=== PATIENT | male | born 1970 | race African-American/Black ===

== ENCOUNTER 2017-10-04 14:45 | Inpatient (IN) | payer OTHER ==
[2017-10-04 15:32] VITALS: BMI 32.3
--- NOTE | 2017-10-04 18:11 | HP ---
CIWA Score - CIWA Score Nausea/Vomitin-Mild Nausea/No Vomiting Muscle Tremors: 4-Moderate,w/Arms Extend Anxiety: 4-Mod. Anxious/Guarded Agitation: 4-Moderately Restless Paroxysmal Sweats: 1-Minimal Palms Moist Orientation: 1-Uncertain about Date Tacttile Disturbances: 0-None Auditory Disturbances: 0-None Visual Disturbances: 0-None Headache: 0-None Present CIWA-Ar Total Score: 15 Admission ROS BHS - HPI Chief Complaint: withdrawal sx Allergies/Adverse Reactions: Allergies Allergy/AdvReac Type Severity Reaction Status Date / Time No Known Allergies Allergy Verified 10/04/17 17:48 History of Present Illness: 47 years old male with long history of alcohol nicotine dependence has hypertension gerd asthma and bipolar ii is admitted to detox Exam Limitations: No Limitations - Ebola screening Have you traveled outside of the country in the last 21 days: No Have you had contact with anyone from an Ebola affected area: No Have you been sick,other than usual withdrawal symptoms: No Do you have a fever: No - Review of Systems Constitutional: Changes in sleep, Weight Stable EENT: reports: No Symptoms Reported Respiratory: reports: No Symptoms reported Cardiac: reports: No Symptoms Reported GI: reports: Nausea, Poor Fluid Intake, Indigestion, Abdominal cramping : reports: No Symptoms Reported Musculoskeletal: reports: No Symptoms Reported Integumentary: reports: No Symptoms Reported Neuro: reports: Tremors Endocrine: reports: No Symptoms Reported Hematology: reports: No Symptoms Reported Psychiatric: reports: Judgement Intact, Anxious, Depressed Other Systems: Reviewed and Negative Patient History - Patient Medical History Hx Anemia: No Hx Asthma: Yes Hx Chronic Obstructive Pulmonary Disease (COPD): No Hx Cancer: No Hx Cardiac Disorders: No Hx Congestive Heart Failure: No Hx Hypertension: Yes Hx Hypercholesterolemia: No Hx Pacemaker: No HX Cerebrovascular Accident: No Hx Seizures: No Hx Dementia: No Hx Diabetes: No Hx Gastrointestinal Disorders: Yes Hx Liver Disease: No Hx Genitourinary Disorders: No Hx Sexually Transmitted Disorders: No Hx Renal Disease (ESRD): No Hx Thyroid Disease: No Hx Human Immunodeficiency Virus (HIV): No (o9 last) Hx Hepatitis C: No Hx Depression: No Hx Suicide Attempt: No Hx Bipolar Disorder: Yes (non compliance) Hx Schizophrenia: No - Patient Surgical History Past Surgical History: Yes Hx Neurologic Surgery: No Hx Cataract Extraction: No Hx Cardiac Surgery: No Hx Lung Surgery: No Hx Breast Surgery: No Hx Breast Biopsy: No Hx Abdominal Surgery: No Hx Appendectomy: No Hx Cholecystectomy: No Hx Genitourinary Surgery: No Hx Orthopedic Surgery: Yes (RT.PINKY TOE) Other Surgical History: laceraion of right forearm in 1990 repair of tendon Anesthesia Reaction: No - PPD History Previous Implant?: Yes Documented Results: Negative w/o proof Implanted On Prior [facility] Admission?: Yes Date: 01/14/15 PPD to be Administered?: Yes - Smoking Cessation Smoking history: Current every day smoker Have you smoked in the past 12 months: Yes Aproximately how many cigarettes per day: 10 Cigars Per Day: 0 Hx Chewing Tobacco Use: No Initiated information on smoking cessation: Yes 'Breaking Loose' booklet given: 10/04/17 - Substance & Tx. History Hx Alcohol Use: Yes Hx Substance Use: Yes Substance Use Type: Alcohol, Cocaine Hx Substance Use Treatment: Yes (2014 ) - Substances Abused Alcohol Route: Oral Frequency: Daily Amount used: 1/2 gallon Age of first use: 8 Date of Last Use: 10/04/17 Cocaine Route: Inhalation Frequency: 1-2 times per week Amount used: 1gm Age of first use: 33 Date of Last Use: 10/03/17 Marijuana/Hashish Route: Smoking Frequency: 1-2 times per week Amount used: 1 joint Age of first use: 8 Date of Last Use: 10/03/17 Family Disease History - Family Disease History Family Disease History: Heart Disease: Mother (alcohol,), Other: Father (no contact), Mother, Brother (alcohol) Admission Physical Exam S - Vital Signs Vital Signs: Vital Signs - 24 hr 10/04/17 15:29 Temperature 96.4 F L Pulse Rate 103 H Respiratory 20 Rate Blood Pressure 129/78 - Physical General Appearance: Yes: Appropriately Dressed, Mild Distress, Alcohol on Breath , Tremorous, Irritable, Sweating, Anxious HEENTM: Yes: Hearing grossly Normal, Normal ENT Inspection, Normocephalic, Normal Voice Respiratory: Yes: Chest Non-Tender, No Respiratory Distress, No Accessory Muscle Use, Wheezing Neck: Yes: Supple, Trachea in good position Breast: Yes: Breasts Symetrical Cardiology: Yes: Regular Rhythm, S1, S2, Tachycardia Abdominal: Yes: Normal Bowel Sounds, Non Tender, Flat Genitourinary: Yes: Within Normal Limits Back: Yes: Normal Inspection Musculoskeletal: Yes: full range of Motion, Gait Steady Extremities: Yes: Normal Inspection, Normal Range of Motion, Non-Tender, Tremors Neurological: Yes: Alert, Motor Strength 5/5, Normal Response, Depressed Affect Integumentary: Yes: Warm Lymphatic: Yes: Within Normal Limits - Diagnostic (1) Alcohol dependence with uncomplicated withdrawal Current Visit: Yes Status: Acute (2) Hypertension Current Visit: Yes Status: Chronic Qualifiers: Hypertension type: essential hypertension Qualified Code(s): I10 - Essential (primary) hypertension (3) Asthma Current Visit: Yes Status: Chronic (4) Gastroesophageal reflux disease Current Visit: Yes Status: Chronic (5) Bipolar II disorder Current Visit: Yes Status: Suspected Cleared for Admission [facility] - Detox or Rehab [facility] Level of Care: Medically Managed Detox Regimen/Protocol: Librium [facility] Breath Alcohol Content Breath Alcohol Content: 0.103 Urine Drug Screen - Results Drug Screen Negative: No Urine Drug Screen Results: CHARI-Cocaine
[2017-10-04] MEDS ORDERED: guaiFENesin/D-METHORPHAN HB 10 ML UNIT-DOSE CUPS PO PRN (18:12)
[2017-10-04] MEDS ORDERED: MAGNESIUM HYDROX 2400MG/30ML ORAL SUSPENSION 30 ML CUP PO PRN (18:12)
[2017-10-04] MEDS ORDERED: LOPERAMIDE HCL 2 MG CAPSULE PO PRN (18:12)
[2017-10-04] MEDS ORDERED: NICOTINE POLACRILEX 2 MG GUM BC PRN (18:12)
[2017-10-04] MEDS ORDERED: MAGNESIUM CITRATE 300 ML BOTTLE PO PRN (18:12)
[2017-10-04] MEDS ORDERED: P-EPHED 60MG/TRIPROLIDI 2.5MG TABLET PO PRN (18:12)
[2017-10-04] MEDS ORDERED: MENTHOL/PHENOL 1 EACH UD MM PRN (18:12)
[2017-10-04] MEDS ORDERED: chlordiazePOXIDE HCL 25 MG CAPSULE PO PRN (18:12)
[2017-10-04] MEDS ORDERED: MAG HYDROX/AL HYDROX/SIMETH 30 ML UNIT-DOSE CUP PO PRN (18:12)
[2017-10-04] MEDS ORDERED: ALBUTEROL SO4 18 GM HFA INHALER IH PRN (18:13)
[2017-10-04] MEDS: ACETAMINOPHEN 325 MG TABLET (FP) PO PRN (20:26)
[2017-10-04] MEDS: THIAMINE HCL 100 MG TABLET (FP) PO SCH (22:31)
[2017-10-04] MEDS: chlordiazePOXIDE HCL 25 MG CAPSULE PO SCH (22:31)
[2017-10-04] MEDS: RANITIDINE HCL 150 MG TABLET (FP) PO SCH (22:31)
[2017-10-04 23:40] LABS: URINE APPEARANCE CLEAR; URINE BILIRUBIN NEGATIVE (NEGATIVE); URINE BLOOD NEGATIVE (NEGATIVE); URINE COLOR YELLOW; URINE GLUCOSE (UA) NEGATIVE (NEGATIVE); URINE KETONE NEGATIVE (NEGATIVE); URINE LEUK ESTERASE NEGATIVE (NEGATIVE); URINE NITRITE NEGATIVE (NEGATIVE); URINE PROTEIN NEGATIVE (NEGATIVE); URINE UROBILINOGEN NEGATIVE mg/dL (0.2-1.0)
[2017-10-05] MEDS: chlordiazePOXIDE HCL 25 MG CAPSULE PO SCH ×4 (05:49→22:31)
[2017-10-05] MEDS: ACETAMINOPHEN 325 MG TABLET (FP) PO PRN (05:50)
[2017-10-05 10:07] LABS: MCH 29.7 pg (25.7-33.7); MCHC 32.1 g/dl (32.0-35.9); MEAN CELL VOLUME 92.7 fl (80-96); MEAN PLT VOLUME 7.6 fl (7.5-11.1); PLATELET COUNT 527 K/MM3 (134-434); RDW 13.9 % (11.9-15.9); WHITE BLOOD COUNT 7.5 K/mm3 (4.0-10.0)
[2017-10-05] MEDS: HYDROCHLOROTHIAZIDE 12.5 MG CAPSULE (FP) PO SCH (10:37)
[2017-10-05] MEDS: NICOTINE 14 MG/24 HOURS TOPICAL PATCH TD SCH (10:38)
[2017-10-05] MEDS: RANITIDINE HCL 150 MG TABLET (FP) PO SCH ×2 (10:38→22:31)
[2017-10-05] MEDS: PRENATAL VITAMINS W/ FOLIC ACID TABLET (FP) PO SCH (10:38)
[2017-10-05 10:50] LABS: ALBUMIN 3.4 g/dl (3.4-5.0); ALK PHOS 82 U/L (45-117); ANION GAP 9 (8-16); BILIRUBIN,TOTAL 0.7 mg/dL (0.2-1.0); CALCIUM 8.5 mg/dL (8.5-10.1); CO2 26 mmol/L (21-32); CREATININE 1.2 mg/dL (0.7-1.3); GLUCOSE,RANDOM 114 mg/dL (74-106); SGOT/AST 34 U/L (15-37); SGPT/ALT 42 U/L (12-78); TOT PROT 6.6 g/dl (6.4-8.2)
[2017-10-05 11:17] LABS: URINE LEUK ESTERASE Negative (NEGATIVE)
--- NOTE | 2017-10-05 11:33 | CONSULT ---
[facility] Psychiatric Consult - Data Date of interview: 10/05/17 Admission source: [facility] Identifying data: Readmission to [facility] for this 47 y/o AA male sseeking detox treatment on for alcohol,cocaine and cannabis dependence.Patient is single without children,domiciled,unemployed and supported on Public Assistance. Substance Abuse History: Discussed in this session.Patient confirmed this [facility] report.Details as follows : Smoking history: Current every day smoker. Have you smoked in the past 12 months: Yes. Aproximately how many cigarettes per day : 10. Cigars Per Day: 0. Hx Chewing Tobacco Use: No. Initiated information on smoking cessation: Yes. 'Breaking Loose' booklet given: 10/04/17. - Substance & Tx. History. Hx Alcohol Use: Yes. Hx Substance Use: Yes. Substance Use Type: Alcohol, Cocaine. Hx Substance Use Treatment: Yes (2014 ). - Substances Abused. Alcohol. Route: Oral. Frequency: Daily. Amount used: 1/2 gallon. Age of first use: 8. Date of Last Use: 10/04/17. Cocaine. Route: Inhalation. Frequency: 1-2 times per week. Amount used: 1gm. Age of first use: 33. Date of Last Use: 10/03/17. Marijuana/Hashish. Route: Smoking. Frequency: 1-2 times per week. Amount used: 1 joint. Age of first use: 8. Date of Last Use: 10/03/17 Medical History: History of heart attack,hypertension,GERD and bronchial asthma. Psychiatric History: No reported history of psychiatric hospitalizations.Diagnosed,however,with MDD and followed at the [facility] in [facility].Patient reports treatment with clonazepam and fluoxetine.Mr Marcos denies history of suicide attempts. Physical/Sexual Abuse/Trauma History: Patient denies. Additional Comment: Urine Drug Screen Results: CHARI-Cocaine.Noted. Mental Status Exam - Mental Status Exam Alert and Oriented to: Time, Place, Person Cognitive Function: Good Patient Appearance: Well Groomed Mood: Hopeful, Euthymic Affect: Appropriate, Normal Range Patient Behavior: Fatigued, Appropriate, Cooperative Speech Pattern: Clear, Appropriate Voice Loudness: Normal Thought Process: Intact, Goal Oriented Thought Disorder: Not Present Hallucinations: Denies Suicidal Ideation: Denies Homicidal Ideation: Denies Insight/Judgement: Poor Sleep: Poorly, Difficulty falling asleep Appetite: Good Muscle strength/Tone: Normal Gait/Station: Normal Psychiatric Findings - Problem List ([place] 1, 2,3) (1) Alcohol dependence with uncomplicated withdrawal Current Visit: Yes Status: Acute (2) Cannabis dependence Current Visit: Yes Status: Acute (3) Cocaine dependence Current Visit: Yes Status: Chronic (4) Nicotine dependence Current Visit: Yes Status: Chronic (5) Substance induced mood disorder Current Visit: Yes Status: Acute (6) Insomnia Current Visit: Yes Status: Acute - Initial Treatment Plan Initial Treatment Plan: Psychoeducation.Detoxification.Sleep hygiene.Medications : prozac 10 mg po daily + ambien 10 mg po hs prn.Side effects/benefits of both drugs are discussed with patient.Mr Marcos has expressed his agreement with this careplan.Observation.
--- NOTE | 2017-10-05 14:00 | EKG ---
Test Reason : Blood Pressure : / mmHG Vent. Rate : 099 BPM Atrial Rate : 099 BPM P-R Int : 146 ms QRS Dur : 084 ms QT Int : 364 ms P-R-T Axes : 060 017 050 degrees QTc Int : 467 ms SINUS RHYTHM WITH OCCASIONAL PREMATURE VENTRICULAR COMPLEXES INFERIOR INFARCT , AGE UNDETERMINED ABNORMAL ECG NO PREVIOUS ECGS AVAILABLE Confirmed by PARAS PORTILLO MD ([id number]) on 10/05/2017 1:59:47 PM Referred By: Confirmed By:PARAS PORTILLO MD
[2017-10-05] MEDS: FLUoxetine HCL 10 MG CAPSULE (FP) PO SCH (14:55)
--- NOTE | 2017-10-05 16:30 | PN ---
S CIWA - CIWA Score Nausea/Vomitin Muscle Tremors: 4-Moderate,w/Arms Extend Anxiety: 4-Mod. Anxious/Guarded Agitation: 4-Moderately Restless Paroxysmal Sweats: 3 Orientation: 0-Oriented Tacttile Disturbances: 1-Very Mild Itch/Numbness Auditory Disturbances: 0-None Visual Disturbances: 0-None Headache: 0-None Present CIWA-Ar Total Score: 19 BHS Progress Note (SOAP) Subjective: Nausea, sweating, tremor, interrupted sleep Objective: 10/05/17 16:29 Last Vital Signs Temp Pulse Resp BP Pulse Ox 96.6 F L 84 18 111/67 10/05/17 13:35 10/05/17 13:35 10/05/17 13:35 10/05/17 13:35 Laboratory Tests 10/04/17 10/05/17 10/05/17 20:09 07:00 07:00 WBC 7.5 D RBC 4.86 Hgb 14.4 Hct 45.1 MCV 92.7 MCH 29.7 MCHC 32.1 RDW 13.9 Plt Count 527 H MPV 7.6 Sodium 138 Potassium 4.4 Chloride 103 Carbon Dioxide 26 Anion Gap 9 BUN 16 D Creatinine 1.2 Creat Clearance w eGFR > 60 Random Glucose 114 H Calcium 8.5 Total Bilirubin 0.7 D AST 34 ALT 42 D Alkaline Phosphatase 82 Total Protein 6.6 Albumin 3.4 Urine Color Yellow Urine Appearance Clear Urine pH 5.0 Ur Specific [place] 1.015 Urine Protein Negative Urine Glucose (UA) Negative Urine Ketones Negative Urine Blood Negative Urine Nitrite Negative Urine Bilirubin Negative Urine Urobilinogen Negative Ur Leukocyte Esterase Negative Valproic Acid RPR Titer 10/05/17 10/05/17 07:00 07:00 WBC RBC Hgb Hct MCV MCH MCHC RDW Plt Count MPV Sodium Potassium Chloride Carbon Dioxide Anion Gap BUN Creatinine Creat Clearance w eGFR Random Glucose Calcium Total Bilirubin AST ALT Alkaline Phosphatase Total Protein Albumin Urine Color Urine Appearance Urine pH Ur Specific [place] Urine Protein Urine Glucose (UA) Urine Ketones Urine Blood Urine Nitrite Urine Bilirubin Urine Urobilinogen Ur Leukocyte Esterase Valproic Acid < 3.000 L RPR Titer Nonreactive Labs noted Assessment: 10/05/17 16:29 Withdrawal symptoms Plan: Continue detox
[2017-10-05] MEDS: ZOLPIDEM TARTRATE 10 MG TABLET (PARK CARE ONLY) PO PRN (22:31)
[2017-10-05] MEDS: THIAMINE HCL 100 MG TABLET (FP) PO SCH (22:31)
[2017-10-06] MEDS: chlordiazePOXIDE HCL 25 MG CAPSULE PO SCH ×2 (06:12→11:20)
[2017-10-06] MEDS: PRENATAL VITAMINS W/ FOLIC ACID TABLET (FP) PO SCH (10:06)
[2017-10-06] MEDS: RANITIDINE HCL 150 MG TABLET (FP) PO SCH ×2 (10:06→22:20)
[2017-10-06] MEDS: FLUoxetine HCL 10 MG CAPSULE (FP) PO SCH (10:06)
[2017-10-06] MEDS: HYDROCHLOROTHIAZIDE 12.5 MG CAPSULE (FP) PO SCH (10:06)
[2017-10-06] MEDS: NICOTINE 14 MG/24 HOURS TOPICAL PATCH TD SCH (10:07)
[2017-10-06] MEDS ORDERED: chlordiazePOXIDE 5 MG CAPSULE PO SCH ×3 (11:55→23:00)
--- NOTE | 2017-10-06 15:08 | PN ---
[facility] CIWA - CIWA Score Nausea/Vomitin-No Nausea/No Vomiting Muscle Tremors: 2 Anxiety: 4-Mod. Anxious/Guarded Agitation: 3 Paroxysmal Sweats: 3 Orientation: 0-Oriented Tacttile Disturbances: 2-Mild Itch/Numbness/Burn Auditory Disturbances: 0-None Visual Disturbances: 0-None Headache: 0-None Present CIWA-Ar Total Score: 14 BHS Progress Note (SOAP) Subjective: Anxious, Tremors, Sweating. Objective: PT. A & O X 3, OBSERVED AMBULATING ON UNIT. NO ACUTE DISTRESS. 10/06/17 15:04 Vital Signs Temperature 96.0 F L 10/06/17 13:28 Pulse Rate 80 10/06/17 13:28 Respiratory Rate 18 10/06/17 13:28 Blood Pressure 137/89 10/06/17 13:28 O2 Sat by Pulse Oximetry (%) Laboratory Tests 10/04/17 10/05/17 10/05/17 20:09 07:00 07:00 WBC 7.5 D RBC 4.86 Hgb 14.4 Hct 45.1 MCV 92.7 MCH 29.7 MCHC 32.1 RDW 13.9 Plt Count 527 H MPV 7.6 Sodium 138 Potassium 4.4 Chloride 103 Carbon Dioxide 26 Anion Gap 9 BUN 16 D Creatinine 1.2 Creat Clearance w eGFR > 60 Random Glucose 114 H Calcium 8.5 Total Bilirubin 0.7 D AST 34 ALT 42 D Alkaline Phosphatase 82 Total Protein 6.6 Albumin 3.4 Urine Color Yellow Urine Appearance Clear Urine pH 5.0 Ur Specific [place] 1.015 Urine Protein Negative Urine Glucose (UA) Negative Urine Ketones Negative Urine Blood Negative Urine Nitrite Negative Urine Bilirubin Negative Urine Urobilinogen Negative Ur Leukocyte Esterase Negative Valproic Acid RPR Titer 10/05/17 10/05/17 07:00 07:00 WBC RBC Hgb Hct MCV MCH MCHC RDW Plt Count MPV Sodium Potassium Chloride Carbon Dioxide Anion Gap BUN Creatinine Creat Clearance w eGFR Random Glucose Calcium Total Bilirubin AST ALT Alkaline Phosphatase Total Protein Albumin Urine Color Urine Appearance Urine pH Ur Specific [place] Urine Protein Urine Glucose (UA) Urine Ketones Urine Blood Urine Nitrite Urine Bilirubin Urine Urobilinogen Ur Leukocyte Esterase Valproic Acid < 3.000 L RPR Titer Nonreactive LABS NOTED. Assessment: 10/06/17 15:04 WITHDRAWAL SYMPTOMS. Plan: CONTINUE DETOX.
[2017-10-06] MEDS: chlordiazePOXIDE HCL 10 MG CAPSULE PO SCH ×2 (17:33→22:19)
[2017-10-06] MEDS: THIAMINE HCL 100 MG TABLET (FP) PO SCH (22:20)
[2017-10-06] MEDS: ZOLPIDEM TARTRATE 10 MG TABLET (PARK CARE ONLY) PO PRN (22:20)
[2017-10-06] MEDS ORDERED: chlordiazePOXIDE HCL 10 MG CAPSULE PO SCH (23:00)
[2017-10-07 05:53] VITALS: BP 120/81; PULSE 64; TEMP 97.5
[2017-10-07] MEDS: chlordiazePOXIDE HCL 10 MG CAPSULE PO SCH (05:55)
[2017-10-07] MEDS: HYDROCHLOROTHIAZIDE 12.5 MG CAPSULE (FP) PO SCH (09:20)
[2017-10-07] MEDS: FLUoxetine HCL 10 MG CAPSULE (FP) PO SCH (09:20)
[2017-10-07] MEDS: RANITIDINE HCL 150 MG TABLET (FP) PO SCH (09:20)
[2017-10-07] MEDS: PRENATAL VITAMINS W/ FOLIC ACID TABLET (FP) PO SCH (09:20)
--- NOTE | 2017-10-07 16:04 | DS ---
[facility] Detox Discharge Summary Admission Date: 10/04/17 Discharge Date: 10/07/17 - History Present History: Alcohol Dependence, Cocaine Dependence Pertinent Past History: Asthma HTN GERD - Physical Exam Results Vital Signs: Vital Signs Temperature 97.5 F L 10/07/17 05:52 Pulse Rate 64 10/07/17 05:52 Respiratory Rate 18 10/07/17 05:52 Blood Pressure 120/81 10/07/17 05:52 O2 Sat by Pulse Oximetry (%) Pertinent Admission Physical Exam Findings: Withdrawal symptoms Laboratory Tests 10/04/17 10/05/17 10/05/17 20:09 07:00 07:00 WBC 7.5 D RBC 4.86 Hgb 14.4 Hct 45.1 MCV 92.7 MCH 29.7 MCHC 32.1 RDW 13.9 Plt Count 527 H MPV 7.6 Sodium 138 Potassium 4.4 Chloride 103 Carbon Dioxide 26 Anion Gap 9 BUN 16 D Creatinine 1.2 Creat Clearance w eGFR > 60 Random Glucose 114 H Calcium 8.5 Total Bilirubin 0.7 D AST 34 ALT 42 D Alkaline Phosphatase 82 Total Protein 6.6 Albumin 3.4 Urine Color Yellow Urine Appearance Clear Urine pH 5.0 Ur Specific [place] 1.015 Urine Protein Negative Urine Glucose (UA) Negative Urine Ketones Negative Urine Blood Negative Urine Nitrite Negative Urine Bilirubin Negative Urine Urobilinogen Negative Ur Leukocyte Esterase Negative Valproic Acid RPR Titer 10/05/17 10/05/17 07:00 07:00 WBC RBC Hgb Hct MCV MCH MCHC RDW Plt Count MPV Sodium Potassium Chloride Carbon Dioxide Anion Gap BUN Creatinine Creat Clearance w eGFR Random Glucose Calcium Total Bilirubin AST ALT Alkaline Phosphatase Total Protein Albumin Urine Color Urine Appearance Urine pH Ur Specific [place] Urine Protein Urine Glucose (UA) Urine Ketones Urine Blood Urine Nitrite Urine Bilirubin Urine Urobilinogen Ur Leukocyte Esterase Valproic Acid < 3.000 L RPR Titer Nonreactive Labs noted - Treatment Hospital Course: Detox Protocol Followed, Detoxed Safely, Responded well, Discharged Condition Good - Medication Discharge Medications: Ambulatory Orders Albuterol Sulfate Inhaler - [Ventolin HFA Inhaler -] 2 inh IH Q4H PRN #0 inh Hydrochlorothiazide [Hctz -] 12.5 mg PO DAILY #0 cap 11/07/13 Omeprazole [Prilosec (RX)] 20 mg PO DAILY #30 capsule 11/07/13 Divalproex *ER* [Depakote *ER* -] 250 mg PO DAILY #90 tablet.sa 01/23/17 Fluoxetine HCl [Prozac] 10 mg PO DAILY 10/04/17 Fluoxetine HCl [Prozac -] 10 mg PO DAILY #30 capsule 10/05/17 - Diagnosis (1) Alcohol dependence with uncomplicated withdrawal Status: Acute (2) Cocaine dependence Status: Chronic (3) Insomnia Status: Acute (4) Nicotine dependence Status: Chronic (5) Asthma Status: Chronic (6) Gastroesophageal reflux disease Status: Chronic (7) Hypertension Status: Chronic Qualifiers: Hypertension type: essential hypertension Qualified Code(s): I10 - Essential (primary) hypertension (8) Bipolar disorder Status: Chronic - AMA Did Patient Leave Against Medical Advice: No (F/U with PCP within 1-2 weeks or sooner if needed)
[2017-10-07] MEDS ORDERED: chlordiazePOXIDE HCL 10 MG CAPSULE PO SCH (23:00)
== END 2017-10-07 09:25 | disposition home or self-care (01) | DRG 774 ==
LOC: YASAS 14:45 → Y3N 18:03
PROVIDERS: ADMIT Internal Medicine; ATTEND Internal Medicine
PROC: HZ2ZZZZ Detoxification Services for Substance Abuse Treatment (ICD-10-PCS; principal; 2017-10-04)
DX: F10.230 Alcohol dependence with withdrawal, uncomplicated (principal); F14.20 Cocaine dependence, uncomplicated; F17.210 Nicotine dependence, cigarettes, uncomplicated; F31.81 Bipolar II disorder; F19.24 Other psychoactive substance dependence with psychoactive substance-induced mood disorder; I10 Essential (primary) hypertension; J45.909 Unspecified asthma, uncomplicated; G47.00 Insomnia, unspecified; K21.9 Gastro-esophageal reflux disease without esophagitis; R00.0 Tachycardia, unspecified; Z91.14 Patient's other noncompliance with medication regimen
CPT/HCPCS: 36415; 80053; 80164; 81003; 85027; 86593; 93005; 93010

== ENCOUNTER 2017-12-25 10:38 | Inpatient (IN) | payer OTHER ==
[2017-12-25 12:16] VITALS: BMI 29.9
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
[2017-12-25] MEDS ORDERED: ACETAMINOPHEN 325 MG TABLET (FP) PO PRN (14:03)
[2017-12-25] MEDS ORDERED: LOPERAMIDE HCL 2 MG CAPSULE PO PRN (14:03)
[2017-12-25] MEDS ORDERED: P-EPHED 60MG/TRIPROLIDI 2.5MG TABLET PO PRN (14:03)
[2017-12-25] MEDS ORDERED: MAGNESIUM HYDROX 2400MG/30ML ORAL SUSPENSION 30 ML CUP PO PRN (14:03)
[2017-12-25] MEDS ORDERED: MAG HYDROX/AL HYDROX/SIMETH 30 ML UNIT-DOSE CUP PO PRN (14:03)
[2017-12-25] MEDS ORDERED: MENTHOL/PHENOL 1 EACH UD MM PRN (14:03)
[2017-12-25] MEDS ORDERED: MAGNESIUM CITRATE 300 ML BOTTLE PO PRN (14:03)
[2017-12-25] MEDS ORDERED: guaiFENesin/D-METHORPHAN HB 10 ML UNIT-DOSE CUPS PO PRN (14:03)
[2017-12-25] MEDS ORDERED: NICOTINE POLACRILEX 2 MG GUM BUC PRN (14:03)
[2017-12-25] MEDS ORDERED: ALBUTEROL SO4 18 GM HFA INHALER IH PRN (14:04)
[2017-12-25] MEDS: NICOTINE 14 MG/24 HOURS TOPICAL PATCH TD SCH (15:48)
[2017-12-25] MEDS: chlordiazePOXIDE HCL 25 MG CAPSULE PO PRN (15:48)
--- NOTE | 2017-12-25 17:20 | CONSULT ---
[facility] Psychiatric Consult - Data Date of interview: 12/25/17 Admission source: [facility] Identifying data: One of multiple admissions to [facility] for this 47 y/o AA male seeking detox treatment on for alcohol,cocaine and cannabis dependence.Patient is single without children,domiciled,unemployed and supported on Public Assistance. Substance Abuse History: Discussed in this session.Mr Marcos endorses a 15-20 year history of alcoholism (consumes 1-2 pints of cognac on a daily basis) + more than 10 years of snorting cocaine And expenses for marihuana ranging from 20-30 dollars three to four times weekly. Just used prior to this [facility] visit. See [facility] report for details : Smoking history: Current every day smoker. Have you smoked in the past 12 months: Yes. Aproximately how many cigarettes per day: 10. Cigars Per Day: 0. Hx Chewing Tobacco Use: No. Initiated information on smoking cessation: Yes. 'Breaking Loose' booklet given : 12/25/17. - Substance & Tx. History. Hx Alcohol Use: Yes. Hx Substance Use : Yes. Substance Use Type: Alcohol, Cocaine. Hx Substance Use Treatment: Yes Medical History: History of orthosurgery (tendon repair in right forearm in 1990 + injury to fifth toe of right foot in 2016),antecedent of myocardial infarction,hypertension,GERD and bronchial asthma. Psychiatric History: Patient denies history of psychiatric hospitalizations.Diagnosed with " Bipolar Disorder and MDD ". Patient states that he is still followed at the [facility] in [facility].Prescribed depakote and prozac.Doses not recalled (non-adherence for past 6-8 weeks as per self-report).Mr Marcos denies history of suicide attempts. Physical/Sexual Abuse/Trauma History: Patient denies. Additional Comment: Urine Drug Screen Results: CHARI-Cocaine.Noted. Mental Status Exam - Mental Status Exam Alert and Oriented to: Time, Place Cognitive Function: Good Patient Appearance: Well Groomed Mood: Hostile, Nervous, Withdrawn Affect: Mood Congruent Patient Behavior: Fatigued, Guarded, Cooperative (marginally cooperative) Speech Pattern: Clear Voice Loudness: Normal Thought Process: Goal Oriented Thought Disorder: Not Present Hallucinations: Denies Suicidal Ideation: Denies Homicidal Ideation: Denies Insight/Judgement: Poor Sleep: Well Appetite: Good Muscle strength/Tone: Normal Gait/Station: Normal Psychiatric Findings - Problem List ([place] 1, 2,3) (1) Alcohol dependence with uncomplicated withdrawal Current Visit: Yes Status: Acute (2) Cocaine dependence Current Visit: Yes Status: Chronic (3) Cannabis dependence Current Visit: Yes Status: Acute (4) Nicotine dependence Current Visit: Yes Status: Acute Qualifiers: Nicotine product type: cigarettes Substance use status: in withdrawal Qualified Code(s): F17.213 - Nicotine dependence, cigarettes, with withdrawal (5) Substance induced mood disorder Current Visit: Yes Status: Acute (6) Bipolar disorder Current Visit: No Status: Chronic Comment: As per existing records and self- report.Total non-adherence to OPD care and medications. (7) Insomnia Current Visit: Yes Status: Acute Comment: Self report.Patient is observed resting in bed since admission to the unit.Taking naps. - Initial Treatment Plan Initial Treatment Plan: Psychoeducation.Records are reviewed.Sleep hygiene.Detoxification in progress.Patient has expressed the wish to resume depakote and fluoxetine.Will initiate treatment with depakote ER 250 mg po daily + prozac 10 mg po daily.Side effects/benefits of both drugs are discussed with patient (which includes information about risk or suicidal ideation,sexual dysfunction,blood dyscrasias,hair loss,sedation and liver dysfunction).This regimen is reported,by patient,as well tolerated and effective (whenever compliance is achieved).Consent (verbal) obtained from Mr Marcos.Daily monitoring of hospital course.Will follow valproic acid level result (already requested).
[2017-12-25 20:06] LABS: URINE APPEARANCE CLEAR; URINE BILIRUBIN NEGATIVE (NEGATIVE); URINE BLOOD NEGATIVE (NEGATIVE); URINE COLOR LTYELLOW; URINE GLUCOSE (UA) NEGATIVE (NEGATIVE); URINE KETONE NEGATIVE (NEGATIVE); URINE LEUK ESTERASE NEGATIVE (NEGATIVE); URINE NITRITE NEGATIVE (NEGATIVE); URINE PROTEIN NEGATIVE (NEGATIVE); URINE UROBILINOGEN NEGATIVE mg/dL (0.2-1.0)
[2017-12-25] MEDS: THIAMINE HCL 100 MG TABLET (FP) PO SCH (22:14)
[2017-12-25] MEDS: chlordiazePOXIDE HCL 25 MG CAPSULE PO SCH (22:15)
[2017-12-25] MEDS: RANITIDINE HCL 150 MG TABLET (FP) PO SCH (22:15)
[2017-12-26] MEDS: chlordiazePOXIDE HCL 25 MG CAPSULE PO SCH ×4 (06:17→22:22)
[2017-12-26] MEDS: chlordiazePOXIDE HCL 25 MG CAPSULE PO PRN (07:16)
--- NOTE | 2017-12-26 10:17 | EKG ---
Test Reason : Blood Pressure : / mmHG Vent. Rate : 074 BPM Atrial Rate : 074 BPM P-R Int : 154 ms QRS Dur : 084 ms QT Int : 402 ms P-R-T Axes : 059 033 055 degrees QTc Int : 446 ms NORMAL SINUS RHYTHM POSSIBLE INFERIOR INFARCT (CITED ON OR BEFORE 04-OCT-2017) ABNORMAL ECG WHEN COMPARED WITH ECG OF 04-OCT-2017 19:55, PREMATURE VENTRICULAR COMPLEXES ARE NO LONGER PRESENT Confirmed by NIKITA WEBB MD ([id number]) on 12/26/2017 10:17:14 AM Referred By: Confirmed By:NIKITA WEBB MD
[2017-12-26 10:43] LABS: CHLORIDE 103 mmol/L (98-107); POTASSIUM 4.5 mmol/L (3.5-5.1); SODIUM 140 mmol/L (136-145)
[2017-12-26] MEDS: PRENATAL VITAMINS W/ FOLIC ACID TABLET (FP) PO SCH (10:43)
[2017-12-26] MEDS: RANITIDINE HCL 150 MG TABLET (FP) PO SCH ×2 (10:43→22:22)
[2017-12-26] MEDS: FLUoxetine HCL 10 MG CAPSULE (FP) PO SCH (10:43)
[2017-12-26] MEDS: HYDROCHLOROTHIAZIDE 12.5 MG CAPSULE (FP) PO SCH (10:43)
[2017-12-26] MEDS: NICOTINE 14 MG/24 HOURS TOPICAL PATCH TD SCH (10:43)
[2017-12-26] MEDS: DIVALPROEX NA *ER* EXTEND REL 250 MG TABLET.SA PO SCH (10:43)
[2017-12-26 11:00] LABS: ALBUMIN 3.8 g/dl (3.4-5.0); ALK PHOS 61 U/L (45-117); ANION GAP 10 (8-16); BILIRUBIN,TOTAL 0.9 mg/dL (0.2-1.0); BLOOD UREA NITROGEN 11 mg/dL (7-18); CALCIUM 9.5 mg/dL (8.5-10.1); CO2 27 mmol/L (21-32); CREATININE 1.2 mg/dL (0.7-1.3); GLUCOSE,RANDOM 103 mg/dL (74-106); SGOT/AST 34 U/L (15-37); SGPT/ALT 45 U/L (12-78); TOT PROT 7.1 g/dl (6.4-8.2)
--- NOTE | 2017-12-26 11:23 | PN ---
S CIWA - CIWA Score Nausea/Vomitin Muscle Tremors: 3 Anxiety: 2 Agitation: 2 Paroxysmal Sweats: 3 Orientation: 0-Oriented Tacttile Disturbances: 1-Very Mild Itch/Numbness Auditory Disturbances: 0-None Visual Disturbances: 0-None Headache: 0-None Present CIWA-Ar Total Score: 13 S Progress Note (SOAP) Subjective: sweats, shakes, interrupted sleep Objective: 12/26/17 11:21 Vital Signs Temperature 98.2 F 12/26/17 10:43 Pulse Rate 78 12/26/17 10:43 Respiratory Rate 20 12/26/17 10:43 Blood Pressure 130/87 12/26/17 10:43 O2 Sat by Pulse Oximetry (%) Laboratory Tests 12/25/17 12/25/17 12/26/17 14:00 15:00 05:45 Sodium 140 Potassium 4.5 Chloride 103 Carbon Dioxide 27 Anion Gap 10 BUN 11 D Creatinine 1.2 Creat Clearance w eGFR > 60 Random Glucose 103 Calcium 9.5 Total Bilirubin 0.9 D AST 34 ALT 45 Alkaline Phosphatase 61 D Total Protein 7.1 Albumin 3.8 Urine Color Ltyellow Urine Appearance Clear Urine pH 6.0 Ur Specific [place] 1.017 Urine Protein Negative Urine Glucose (UA) Negative Urine Ketones Negative Urine Blood Negative Urine Nitrite Negative Urine Bilirubin Negative Urine Urobilinogen Negative Ur Leukocyte Esterase Negative Valproic Acid < 3.000 L pt aox3 in nad ambulating Assessment: 12/26/17 11:22 withdrawal sx's Plan: cont. detox increase fluids
[2017-12-26 11:48] LABS: HEMATOCRIT 44.4 % (35.4-49); HEMOGLOBIN 15.3 GM/dL (11.7-16.9); MCHC 34.4 g/dl (32.0-35.9); MEAN CELL VOLUME 93.1 fl (80-96); MEAN PLT VOLUME 7.7 fl (7.5-11.1); PLATELET COUNT 526 K/MM3 (134-434); RBC 4.77 M/mm3 (4.00-5.60); RDW 14.4 % (11.9-15.9); WHITE BLOOD COUNT 7.1 K/mm3 (4.0-10.0)
[2017-12-26] MEDS: THIAMINE HCL 100 MG TABLET (FP) PO SCH (22:22)
[2017-12-27] MEDS: chlordiazePOXIDE HCL 25 MG CAPSULE PO SCH ×2 (05:50→11:05)
[2017-12-27] MEDS: DIVALPROEX NA *ER* EXTEND REL 250 MG TABLET.SA PO SCH (11:04)
[2017-12-27] MEDS: HYDROCHLOROTHIAZIDE 12.5 MG CAPSULE (FP) PO SCH (11:04)
[2017-12-27] MEDS: NICOTINE 14 MG/24 HOURS TOPICAL PATCH TD SCH (11:04)
[2017-12-27] MEDS: PRENATAL VITAMINS W/ FOLIC ACID TABLET (FP) PO SCH (11:04)
[2017-12-27] MEDS: RANITIDINE HCL 150 MG TABLET (FP) PO SCH (11:05)
[2017-12-27] MEDS: FLUoxetine HCL 10 MG CAPSULE (FP) PO SCH (11:05)
[2017-12-27 11:11] VITALS: BP 137/93; PULSE 74; TEMP 97.4
--- NOTE | 2017-12-27 14:53 | PN ---
[facility] CIWA - CIWA Score Nausea/Vomitin-No Nausea/No Vomiting Muscle Tremors: 3 Anxiety: 4-Mod. Anxious/Guarded Agitation: 4-Moderately Restless Paroxysmal Sweats: 3 Orientation: 0-Oriented Tacttile Disturbances: 2-Mild Itch/Numbness/Burn Auditory Disturbances: 0-None Visual Disturbances: 0-None Headache: 0-None Present CIWA-Ar Total Score: 16 BHS Progress Note (SOAP) Subjective: Sweating, tremors, Interrupted Sleep. Objective: PATIENT A & O X 3, OBSERVED AMBULATING ON UNIT. NO ACUTE DISTRESS. 12/27/17 14:52 Vital Signs Temperature 97.4 F L 12/27/17 10:00 Pulse Rate 74 12/27/17 10:00 Respiratory Rate 18 12/27/17 10:00 Blood Pressure 137/93 12/27/17 10:00 O2 Sat by Pulse Oximetry (%) Laboratory Tests 12/25/17 12/25/17 12/25/17 06:00 14:00 15:00 WBC RBC Hgb Hct MCV MCH MCHC RDW Plt Count MPV Sodium Potassium Chloride Carbon Dioxide Anion Gap BUN Creatinine Creat Clearance w eGFR Random Glucose Calcium Total Bilirubin AST ALT Alkaline Phosphatase Total Protein Albumin Urine Color Ltyellow Urine Appearance Clear Urine pH 6.0 Ur Specific [place] 1.017 Urine Protein Negative Urine Glucose (UA) Negative Urine Ketones Negative Urine Blood Negative Urine Nitrite Negative Urine Bilirubin Negative Urine Urobilinogen Negative Ur Leukocyte Esterase Negative Valproic Acid < 3.000 L RPR Titer HIV 1&2 Antibody Screen Negative HIV P24 Antigen Negative 12/26/17 12/26/17 12/26/17 05:45 05:45 05:45 WBC 7.1 RBC 4.77 Hgb 15.3 Hct 44.4 MCV 93.1 MCH 32.0 MCHC 34.4 RDW 14.4 Plt Count 526 H MPV 7.7 Sodium 140 Potassium 4.5 Chloride 103 Carbon Dioxide 27 Anion Gap 10 BUN 11 D Creatinine 1.2 Creat Clearance w eGFR > 60 Random Glucose 103 Calcium 9.5 Total Bilirubin 0.9 D AST 34 ALT 45 Alkaline Phosphatase 61 D Total Protein 7.1 Albumin 3.8 Urine Color Urine Appearance Urine pH Ur Specific [place] Urine Protein Urine Glucose (UA) Urine Ketones Urine Blood Urine Nitrite Urine Bilirubin Urine Urobilinogen Ur Leukocyte Esterase Valproic Acid RPR Titer Nonreactive HIV 1&2 Antibody Screen HIV P24 Antigen LABS NOTED. Assessment: 12/27/17 14:52 WITHDRAWAL SYMPTOMS. Plan: CONTINUE DETOX. INCREASE DAILY PO FLUID INTAKE.
--- NOTE | 2017-12-27 14:54 | DS ---
[facility] Detox Discharge Summary Admission Date: 12/25/17 Discharge Date: 12/27/17 - History Present History: Alcohol Dependence, Cannabis Dependence, Cocaine Dependence Additional Comments: PATIENT DOES NOT WISH TO STAY TO COMPLETE DETOX REGIMEN. RISKS OF LEAVING DETOX UNIT AGAINST MEDICAL ADVICE AND PRIOR TO COMPLETION OF DETOX REGIMEN EXPLAINED TO PATIENT. PATIENT DECLINES DISCHARGE MEDICATIONS. PATIENT ADVISED TO GO IMMEDIATELY TO NEAREST ER SHOULD ANY INTOLERABLE DETOX SYMPTOMS DEVELOP AT ANY TIME. PATIENT LEFT DETOX UNIT IN STABLE MEDICAL CONDITION. Pertinent Past History: HTN, Bipolar Disorder, Insomnia, Nicotine Dependence, Arthritis, Asthma, GERD. - Physical Exam Results Vital Signs: Vital Signs Temperature 97.4 F L 12/27/17 10:00 Pulse Rate 74 12/27/17 10:00 Respiratory Rate 18 12/27/17 10:00 Blood Pressure 137/93 12/27/17 10:00 O2 Sat by Pulse Oximetry (%) Pertinent Admission Physical Exam Findings: WITHDRAWAL SYMPTOMS. Laboratory Tests 12/25/17 12/25/17 12/25/17 06:00 14:00 15:00 WBC RBC Hgb Hct MCV MCH MCHC RDW Plt Count MPV Sodium Potassium Chloride Carbon Dioxide Anion Gap BUN Creatinine Creat Clearance w eGFR Random Glucose Calcium Total Bilirubin AST ALT Alkaline Phosphatase Total Protein Albumin Urine Color Ltyellow Urine Appearance Clear Urine pH 6.0 Ur Specific [place] 1.017 Urine Protein Negative Urine Glucose (UA) Negative Urine Ketones Negative Urine Blood Negative Urine Nitrite Negative Urine Bilirubin Negative Urine Urobilinogen Negative Ur Leukocyte Esterase Negative Valproic Acid < 3.000 L RPR Titer HIV 1&2 Antibody Screen Negative HIV P24 Antigen Negative 12/26/17 12/26/17 12/26/17 05:45 05:45 05:45 WBC 7.1 RBC 4.77 Hgb 15.3 Hct 44.4 MCV 93.1 MCH 32.0 MCHC 34.4 RDW 14.4 Plt Count 526 H MPV 7.7 Sodium 140 Potassium 4.5 Chloride 103 Carbon Dioxide 27 Anion Gap 10 BUN 11 D Creatinine 1.2 Creat Clearance w eGFR > 60 Random Glucose 103 Calcium 9.5 Total Bilirubin 0.9 D AST 34 ALT 45 Alkaline Phosphatase 61 D Total Protein 7.1 Albumin 3.8 Urine Color Urine Appearance Urine pH Ur Specific [place] Urine Protein Urine Glucose (UA) Urine Ketones Urine Blood Urine Nitrite Urine Bilirubin Urine Urobilinogen Ur Leukocyte Esterase Valproic Acid RPR Titer Nonreactive HIV 1&2 Antibody Screen HIV P24 Antigen LABS NOTED. - Treatment Hospital Course: Detoxed Safely - Medication Discharge Medications: Ambulatory Orders Albuterol Sulfate Inhaler - [Ventolin HFA Inhaler -] 2 inh IH Q4H PRN #0 inh Hydrochlorothiazide [Hctz -] 12.5 mg PO DAILY #0 cap 11/07/13 Omeprazole [Prilosec (RX)] 20 mg PO DAILY #30 capsule 11/07/13 Divalproex *ER* [Depakote *ER* -] 250 mg PO DAILY #90 tablet.sa 01/23/17 Fluoxetine HCl [Prozac -] 10 mg PO DAILY #30 capsule 12/26/17 - Diagnosis (1) Alcohol dependence with uncomplicated withdrawal Status: Acute (2) Cannabis dependence Status: Acute (3) Nicotine dependence Status: Acute Qualifiers: Nicotine product type: cigarettes Substance use status: in withdrawal Qualified Code(s): F17.213 - Nicotine dependence, cigarettes, with withdrawal (4) Substance induced mood disorder Status: Acute (5) Arthritis Status: Chronic (6) Asthma Status: Chronic (7) GERD (gastroesophageal reflux disease) Status: Chronic Qualifiers: Esophagitis presence: without esophagitis Qualified Code(s): K21.9 - Gastro -esophageal reflux disease without esophagitis (8) Hypertension Status: Chronic Qualifiers: Hypertension type: essential hypertension Qualified Code(s): I10 - Essential (primary) hypertension (9) Insomnia Status: Acute Qualifiers: Insomnia type: unspecified Qualified Code(s): G47.00 - Insomnia, unspecified (10) Bipolar disorder Status: Chronic Qualifiers: Active/Remission status: remission status unspecified Qualified Code(s): F31.9 - Bipolar disorder, unspecified (11) Cocaine dependence Status: Chronic - AMA Did Patient Leave Against Medical Advice: Yes (PATIENT DID NOT WISH TO STAY TO COMPLETE DETOX REGIMEN.)
[2017-12-27] MEDS ORDERED: chlordiazePOXIDE 5 MG CAPSULE PO SCH (23:00)
[2017-12-28] MEDS ORDERED: chlordiazePOXIDE HCL 10 MG CAPSULE PO SCH (23:00)
== END 2017-12-27 11:15 | disposition left against medical advice (07) | DRG 770 ==
LOC: YASAS 10:38 → Y3N 14:41
PROVIDERS: ADMIT Internal Medicine; ATTEND Internal Medicine
PROC: HZ2ZZZZ Detoxification Services for Substance Abuse Treatment (ICD-10-PCS; principal; 2017-12-25)
DX: F10.230 Alcohol dependence with withdrawal, uncomplicated (principal); F14.20 Cocaine dependence, uncomplicated; F12.20 Cannabis dependence, uncomplicated; F17.210 Nicotine dependence, cigarettes, uncomplicated; F31.81 Bipolar II disorder; F19.24 Other psychoactive substance dependence with psychoactive substance-induced mood disorder; G47.00 Insomnia, unspecified; I10 Essential (primary) hypertension; J45.909 Unspecified asthma, uncomplicated; K21.9 Gastro-esophageal reflux disease without esophagitis
CPT/HCPCS: 36415; 80053; 80164; 81003; 85027; 86593; 87389; 93005; 93010